=== PATIENT | female | born 1940 | race Caucasian/White ===

== ENCOUNTER 2020-07-29 15:09 | Inpatient (IN) ==
[2020-07-29] MEDS ORDERED: Naloxone 0.4 MG/ML INJ IVP PRN (18:54)
[2020-07-29] MEDS ORDERED: Ondansetron 4 MG/2 ML VIAL IVP PRN (18:54)
[2020-07-29 19:39] LABS: Adenovirus Not Detected (Not Detect); Bordetella Pertussis Not Detected (Not Detect); Chlamydophila pneumoniae Not Detected (Not Detect); Coronavirus 229E Not Detected (Not Detect); Coronavirus HKU1 Not Detected (Not Detect); Coronavirus NL63 Not Detected (Not Detect); Coronavirus OC43 Not Detected (Not Detect); Human Metapneumovirus Not Detected (Not Detect); Human Rhinovirus/Enterovirus Not Detected (Not Detect); Influenza A Subtype 2009 H1 Not Detected (Not Detect); Influenza B Not Detected (Not Detect); Mycoplasma pneumoniae Not Detected (Not Detect); Parainfluenza Virus 1 Not Detected (Not Detect); Parainfluenza Virus 2 Not Detected (Not Detect); Parainfluenza Virus 3 Not Detected (Not Detect); Parainfluenza Virus 4 Not Detected (Not Detect); Respiratory Syncytial Virus Not Detected (Not Detect)
[2020-07-29 19:40] LABS: SARS-CoV-2 Not Detected (Not Detect)
[2020-07-29] MEDS: 0.9 % Sodium Chloride 1,000 ML IVC SCH (23:17)
[2020-07-30] MEDS: Ketorolac 30 MG/ML VIAL IVP PRN ×3 (00:16→17:54)
[2020-07-30 05:03] LABS: Basophils % 0.2 %; Eosinophils # 0.1 K/mcL (0.0-0.6); Eosinophils % 0.8 %; Hematocrit 34.5 % (35.3-44.9); Hemoglobin 11.7 g/dL (11.5-15.4); Immature Granulocytes % 0.4 % (0-4); Lymphocytes % 10.7 %; Mean Corpuscular HGB Conc 33.9 g/dL (31.6-35.5); Mean Corpuscular Hemoglobin 31.8 pg (28.0-33.3); Mean Corpuscular Volume 93.8 fL (83.0-100.0); Mean Platelet Volume 8.3 fL (9.4-12.4); Monocytes # 0.9 K/mcL (0.0-1.3); Monocytes % 9.6 %; Neutrophils # 7.5 K/mcL (1.6-8.9); Platelet Count 237 K/mcL (140-400); Red Blood Count 3.68 M/mcL (3.82-4.97); Red Cell Distribution Width 12.2 % (11.5-14.5); Segmented Neutrophils % 78.3 %; White Blood Count 9.6 K/mcL (4.3-11.1)
[2020-07-30 05:20] LABS: BUN/Creatinine Ratio 18 (6-26); Blood Urea Nitrogen 10 mg/dL (8-23); Calcium 8.7 mg/dL (8.6-10.3); Carbon Dioxide 21 mEq/L (23-29); Chloride 100 mEq/L (98-107); Glucose 119 mg/dL (70-105); Osmolality,Calculated 272 (280-300); Potassium 3.6 mEq/L (3.5-5.1); Sodium 131 mEq/L (136-145); eGFR For African Americans > 60 (> 60); eGFR For Non-African Americans > 60 (> 60)
[2020-07-30] MEDS ORDERED: Psyllium 1 PACKET POWD.PACK PO SCH (09:30)
[2020-07-30] MEDS ORDERED: Famotidine 20 MG/2 ML VIAL IVP ONE (09:54)
[2020-07-30] MEDS ORDERED: *HR* Propofol 200 MG/20 ML VIAL IVP ONE ×2 (10:47→12:03)
[2020-07-30] MEDS ORDERED: *HR* FentaNYL (PF) 100 MCG/2 ML VIAL ONE (10:47)
[2020-07-30] MEDS ORDERED: Lidocaine -MPF 2% 2 ML VIAL ONE ×2 (10:52→13:03)
[2020-07-30] MEDS ORDERED: Ondansetron 4 MG/2 ML VIAL ONE (10:52)
[2020-07-30] MEDS: 0.9 % Sodium Chloride 1,000 ML IVC SCH (11:41)
[2020-07-30] MEDS ORDERED: *HR* FentaNYL (PF) 100 MCG/2 ML VIAL IVP PRN (11:48)
[2020-07-30] MEDS ORDERED: *HR* HYDROmorphone PF 0.5 MG/0.5 ML SYRINGE IVP PRN (11:48)
[2020-07-30] MEDS ORDERED: CeFAZolin Syr 2,000MG/20 ML 2,000 MG/20 ML SYRINGE IVPB ONE (12:15)
[2020-07-30] MEDS ORDERED: Lidocaine HCL 4 ML Topical Solution (Laryng-O-Jet Kit Sterile Pak) TP ONE (12:22)
[2020-07-30] MEDS ORDERED: *HR* Succinylcholine 200 MG/10 ML VIAL IVP ONE (12:24)
[2020-07-30] MEDS ORDERED: Acetaminophen IV 1,000 MG/100 ML BAG ONE (12:48)
[2020-07-30] MEDS ORDERED: Dexamethasone 4 MG/ML VIAL ONE (12:48)
[2020-07-30] MEDS ORDERED: EPHEDrine 50 MG/ML VIAL ONE (12:49)
[2020-07-30] MEDS ORDERED: Acetaminophen IV 1,000 MG/100 ML BAG IVPB ONE (12:51)
[2020-07-30] MEDS ORDERED: *HR* PHENYLEPHRINE 1,000 MCG/10 ML SYRINGE IVP ONE (13:04)
[2020-07-30] MEDS ORDERED: Naloxone 0.4 MG/ML INJ IVP PRN (14:30)
[2020-07-30] MEDS ORDERED: Ondansetron 4 MG/2 ML VIAL IVP PRN (14:30)
[2020-07-30] MEDS ORDERED: 0.9 % Sodium Chloride 1,000 ML IVC SCH (14:30)
[2020-07-30] MEDS: Psyllium 1 PACKET POWD.PACK PO SCH ×2 (17:03→19:55)
[2020-07-30] MEDS: *HR* Heparin 5,000 UNIT/ML VIAL SQ SCH (17:04)
[2020-07-30] MEDS ORDERED: *HR* Heparin 5,000 UNIT/ML VIAL SQ SCH (18:00)
[2020-07-30] MEDS: CeFAZolin 2 GM/120 ML BAG IVPB SCH (19:54)
[2020-07-31 02:14] LABS: Basophils % 0.1 %; Eosinophils % 0.1 %; Hematocrit 26.6 % (35.3-44.9); Immature Granulocytes % 0.4 % (0-4); Lymphocytes # 0.7 K/mcL (0.6-4.6); Lymphocytes % 5.8 %; Mean Corpuscular HGB Conc 33.8 g/dL (31.6-35.5); Mean Corpuscular Hemoglobin 31.3 pg (28.0-33.3); Mean Corpuscular Volume 92.4 fL (83.0-100.0); Mean Platelet Volume 8.4 fL (9.4-12.4); Monocytes % 8.4 %; Neutrophils # 9.8 K/mcL (1.6-8.9); Platelet Count 189 K/mcL (140-400); Red Blood Count 2.88 M/mcL (3.82-4.97); Red Cell Distribution Width 12.3 % (11.5-14.5); Segmented Neutrophils % 85.2 %; White Blood Count 11.5 K/mcL (4.3-11.1)
[2020-07-31 02:28] LABS: BUN/Creatinine Ratio 24 (6-26); Blood Urea Nitrogen 13 mg/dL (8-23); Calcium 8.2 mg/dL (8.6-10.3); Carbon Dioxide 21 mEq/L (23-29); Chloride 102 mEq/L (98-107); Glucose 146 mg/dL (70-105); Magnesium 1.8 mg/dL (1.6-2.6); Osmolality,Calculated 273 (280-300); Phosphorous 2.5 mg/dL (2.7-4.5); Potassium 4.2 mEq/L (3.5-5.1); Sodium 130 mEq/L (136-145); eGFR For African Americans > 60 (> 60); eGFR For Non-African Americans > 60 (> 60)
[2020-07-31] MEDS: CeFAZolin 2 GM/120 ML BAG IVPB SCH (05:39)
[2020-07-31] MEDS: *HR* Heparin 5,000 UNIT/ML VIAL SQ SCH (05:47)
[2020-07-31] MEDS: Ketorolac 30 MG/ML VIAL IVP PRN (05:52)
[2020-07-31] MEDS: lisinopriL 10 MG TABLET PO SCH (08:09)
[2020-07-31] MEDS: Psyllium 1 PACKET POWD.PACK PO SCH (08:09)
[2020-07-31 08:21] LABS: Hematocrit 25.5 % (35.3-44.9); Hemoglobin 8.5 g/dL (11.5-15.4)
[2020-07-31] MEDS ORDERED: lisinopriL 10 MG TABLET PO SCH (09:00)
[2020-07-31] MEDS ORDERED: Acetaminophen 325 MG TABLET PO PRN (11:19)
[2020-07-31] MEDS: *HR* OxyCODONE Immed Rel 5 MG TABLET PO PRN ×2 (13:08→19:16)
[2020-07-31] MEDS: Aspirin Enteric Coated 81 MG Tablet PO SCH (13:09)
[2020-07-31] MEDS: 0.9 % Sodium Chloride 1,000 ML IVC SCH (19:21)
[2020-08-01 04:35] LABS: Basophils % 0.3 %; Eosinophils # 0.2 K/mcL (0.0-0.6); Eosinophils % 2.6 %; Hematocrit 20.5 % (35.3-44.9); Immature Granulocytes % 0.6 % (0-4); Lymphocytes # 0.9 K/mcL (0.6-4.6); Lymphocytes % 10.6 %; Mean Corpuscular HGB Conc 34.1 g/dL (31.6-35.5); Mean Corpuscular Hemoglobin 32.4 pg (28.0-33.3); Mean Corpuscular Volume 94.9 fL (83.0-100.0); Mean Platelet Volume 8.6 fL (9.4-12.4); Monocytes % 11.3 %; Neutrophils # 6.5 K/mcL (1.6-8.9); Platelet Count 164 K/mcL (140-400); Red Blood Count 2.16 M/mcL (3.82-4.97); Red Cell Distribution Width 12.5 % (11.5-14.5); Segmented Neutrophils % 74.6 %; White Blood Count 8.7 K/mcL (4.3-11.1)
[2020-08-01 04:56] LABS: BUN/Creatinine Ratio 27 (6-26); Blood Urea Nitrogen 13 mg/dL (8-23); Calcium 7.6 mg/dL (8.6-10.3); Carbon Dioxide 22 mEq/L (23-29); Chloride 105 mEq/L (98-107); Glucose 123 mg/dL (70-105); Magnesium 1.8 mg/dL (1.6-2.6); Osmolality,Calculated 277 (280-300); Phosphorous 2.2 mg/dL (2.7-4.5); Potassium 3.8 mEq/L (3.5-5.1); Sodium 133 mEq/L (136-145); eGFR For African Americans > 60 (> 60); eGFR For Non-African Americans > 60 (> 60)
[2020-08-01] MEDS: Aspirin Enteric Coated 81 MG Tablet PO SCH (08:03)
[2020-08-01] MEDS: lisinopriL 10 MG TABLET PO SCH (08:03)
[2020-08-01] MEDS: *HR* OxyCODONE Immed Rel 5 MG TABLET PO PRN ×2 (08:04→17:28)
[2020-08-01] MEDS ORDERED: Psyllium 1 PACKET POWD.PACK PO SCH (09:00)
[2020-08-01] MEDS ORDERED: 0.9 % Sodium Chloride 250 ML ONE ×2 (09:28→15:32)
[2020-08-01] MEDS ORDERED: Sennosides 8.6 MG TABLET PO PRN (10:40)
[2020-08-01] MEDS: Psyllium 1 PACKET POWD.PACK PO SCH (14:55)
[2020-08-01 20:05] LABS: Hematocrit 30.2 % (35.3-44.9)
[2020-08-01] MEDS: 0.9 % Sodium Chloride 1,000 ML IVC SCH (20:23)
[2020-08-02 01:39] LABS: Basophils # 0.1 K/mcL (0.0-0.2); Basophils % 0.6 %; Eosinophils # 0.4 K/mcL (0.0-0.6); Eosinophils % 4.1 %; Hematocrit 27.1 % (35.3-44.9); Hemoglobin 8.9 g/dL (11.5-15.4); Immature Granulocytes % 0.8 % (0-4); Lymphocytes # 1.2 K/mcL (0.6-4.6); Lymphocytes % 13.4 %; Mean Corpuscular HGB Conc 32.8 g/dL (31.6-35.5); Mean Corpuscular Hemoglobin 29.9 pg (28.0-33.3); Mean Corpuscular Volume 90.9 fL (83.0-100.0); Mean Platelet Volume 8.6 fL (9.4-12.4); Monocytes % 11.8 %; Neutrophils # 6.1 K/mcL (1.6-8.9); Platelet Count 170 K/mcL (140-400); Red Blood Count 2.98 M/mcL (3.82-4.97); Segmented Neutrophils % 69.3 %; White Blood Count 8.8 K/mcL (4.3-11.1)
[2020-08-02 01:56] LABS: BUN/Creatinine Ratio 26 (6-26); Blood Urea Nitrogen 12 mg/dL (8-23); Carbon Dioxide 21 mEq/L (23-29); Chloride 104 mEq/L (98-107); Glucose 109 mg/dL (70-105); Magnesium 1.8 mg/dL (1.6-2.6); Osmolality,Calculated 276 (280-300); Phosphorous 2.8 mg/dL (2.7-4.5); Potassium 4.3 mEq/L (3.5-5.1); Sodium 133 mEq/L (136-145); eGFR For African Americans > 60 (> 60); eGFR For Non-African Americans > 60 (> 60)
[2020-08-02 08:38] LABS: Hematocrit 29.2 % (35.3-44.9); Hemoglobin 9.8 g/dL (11.5-15.4)
[2020-08-02] MEDS: lisinopriL 10 MG TABLET PO SCH (09:50)
[2020-08-02] MEDS: Aspirin Enteric Coated 81 MG Tablet PO SCH (09:50)
[2020-08-02] MEDS: *HR* OxyCODONE Immed Rel 5 MG TABLET PO PRN ×2 (09:50→15:24)
[2020-08-02] MEDS: Psyllium 1 PACKET POWD.PACK PO SCH (14:31)
[2020-08-02] MEDS: 0.9 % Sodium Chloride 1,000 ML IVC SCH (14:33)
[2020-08-02 15:19] VITALS: BP 154/75
== END 2020-08-02 15:25 | DRG 481 ==
LOC: CDU → 3NENU 21:10
PROVIDERS: ADMIT Family Medicine; ATTEND Family Medicine